=== PATIENT | male | born 1975 | race Caucasian/White ===

== ENCOUNTER 2017-06-26 11:49 | Emergency (ER) | payer MEDICAID, OTHER ==
[2017-06-26] MEDS: SOD CHLORIDE 0.9% 500 ML IV (15:17)
[2017-06-26] MEDS: ONDANSETRON 4 MG INJ IV (15:17)
[2017-06-26] MEDS: morphine 4 MG/ML VIAL IV (15:18)
[2017-06-26 15:24] LABS: ADD MAN DIFF? NO
[2017-06-26 15:25] LABS: HEMATOCRIT 46.6 % (42.0-52.0); HEMOGLOBIN 16.4 g/dl (14.0-18.0); MEAN CORPUSCULAR HGB CONC 35.2 g/dl (32.0-37.0); MEAN CORPUSCULAR VOLUME 88.1 fl (82.0-101.0); PLATELET COUNT 351 10^3/UL (140-415); RED BLOOD COUNT 5.29 10^6/ul (4.70-6.10)
[2017-06-26 15:25] LABS: WHITE BLOOD COUNT 9.4 10^3/ul (4.8-10.8)
[2017-06-26 15:26] LABS: BASOPHIL # 0.1 10^3/ul (0.0-0.1); BASOPHILS % 0.8 % (0.0-2.0); EOSINOPHILS # 0.3 10^3/ul (0.0-0.5); EOSINOPHILS % 3.5 % (0.0-7.0); LYMPHOCYTES # 1.8 10^3/ul (0.8-2.9); LYMPHOCYTES % 18.9 % (15.0-51.0); MONOCYTE # 0.7 10^3/ul (0.3-0.9); MONOCYTES % 7.5 % (0.0-11.0); NEUTROPHIL # 6.5 10^3/ul (1.6-7.5)
[2017-06-26 15:39] LABS: ADD UMIC NO; UR ASCORBIC ACID 20 mg/dL (NEGATIVE); UR BILIRUBIN (Dip) NEGATIVE (NEGATIVE); UR BLOOD (Dip) NEGATIVE (NEGATIVE); UR CLARITY CLEAR (CLEAR); UR COLOR YELLOW (YELLOW); UR GLUCOSE (Dip) NEGATIVE (NEGATIVE); UR KETONES (Dip) NEGATIVE (NEGATIVE); UR LEUKOCYTE ESTERASE (Dip) NEGATIVE Leu/ul (NEGATIVE); UR NITRITE (Dip) NEGATIVE (NEGATIVE); UR SPECIFIC GRAVITY (Dip) 1.015 (1.003-1.030); UR TOTAL PROTEIN (Dip) NEGATIVE (NEGATIVE); UR UROBILINOGEN (Dip) NEGATIVE (NEGATIVE)
[2017-06-26 15:47] LABS: ALANINE AMINOTRANSFERASE 39 IU/L (13-69); ALBUMIN 4.8 g/dl (3.3-4.9); ALBUMIN/GLOBULIN RATIO 1.54; ALKALINE PHOSPHATASE 89 IU/L (42-121); ANION GAP 15 (8-16); ASPARTATE AMINO TRANSFERASE 39 IU/L (15-46); BILIRUBIN,INDIRECT 0.6 mg/dl (0-1.1); BILIRUBIN,TOTAL 0.6 mg/dl (0.2-1.3); BLOOD UREA NITROGEN 11 mg/dl (7-20); CALCIUM 9.6 mg/dl (8.4-10.2); CARBON DIOXIDE 28 mmol/L (21-31); CHLORIDE 103 mmol/L (97-110); CREATININE 0.76 mg/dl (0.61-1.24); GLUCOSE 103 mg/dl (70-220); POTASSIUM 4.6 mmol/L (3.5-5.1); SODIUM 141 mmol/L (135-144); TOTAL PROTEIN 7.9 g/dl (6.1-8.1)
== END 2017-06-26 19:43 | disposition home or self-care (01) ==
LOC: FTE 11:49
DX: R10.9 Unspecified abdominal pain (principal)
CPT/HCPCS: 36415; 74176; 80053; 81003; 85025; 96374; 96375; 99285-25

== ENCOUNTER 2018-05-28 09:44 | Emergency (ER) | payer MEDICAID ==
[2018-05-28] MEDS: FLUORESCEIN STRIP BOTH EYES (10:26)
[2018-05-28] MEDS: CIPROFLOXACIN 0.3% 2.5 ML OPH LEFT EYE (11:02)
== END 2018-05-28 11:14 | disposition home or self-care (01) ==
LOC: FTE 09:44
DX: T15.92XA Foreign body on external eye, part unspecified, left eye, initial encounter (principal); X58.XXXA Exposure to other specified factors, initial encounter; Y92.9 Unspecified place or not applicable
CPT/HCPCS: 65220; 99283-25

== ENCOUNTER 2019-01-02 19:20 | Emergency (ER) | payer MEDICAID ==
[2019-01-02] MEDS: KETOROLAC 30 MG INJ IM (21:09)
== END 2019-01-02 22:24 | disposition home or self-care (01) ==
LOC: E/R 19:20
DX: M54.5 Low back pain (principal)
CPT/HCPCS: 72100; 96372; 99284-25